=== PATIENT | male | born 1990 | race Caucasian/White ===

== ENCOUNTER 2019-10-19 11:57 | Inpatient (IN) | payer OTHER ==
[2019-10-19] VITALS (9 sets, daily range): BP systolic 115–140; BP diastolic 74–93
[~2019-10-19] VITALS: Ht 177.8 cm; Wt 73.0 kg
[2019-10-19] MEDS ORDERED: ALBUTEROL2.5 MG/0.1 INH (12:17)
[2019-10-19] MEDS ORDERED: PROAIR HFA8.5 GM INH (12:18)
[2019-10-19 12:22] LABS: ABSOLUTE NEUTROPHILS 3.8 thou/uL (1.4-8.2); BASOPHILS 1.3 % (0.0-2.0); EOSINOPHILS 4.5 % (0.0-3.0); HEMATOCRIT 49.8 % (42.0-52.0); HEMOGLOBIN 16.7 gm/dL (14.0-18.0); LYMPHOCYTES 23.3 % (24.0-44.0); MCHC 33.6 g/dL (28.0-37.0); MONOCYTES 8.9 % (1.0-8.0); PLATELET COUNT 163 thou/uL (150-400); RBC 4.65 mil/uL (4.50-6.00); RDW 17.4 % (10.5-14.5); WBC 6.2 thou/uL (4.0-11.0)
[2019-10-19 12:43] LABS: ANION GAP 14 mmol/L (7-16); BUN 2 mg/dL (7-18); CALCIUM 9.7 mg/dL (8.5-10.1); CHLORIDE 96 mmol/L (98-107); CO2 29 mmol/L (21-32); CREATININE 1.3 mg/dL (0.7-1.3); GLUCOSE 116 mg/dL (74-106); POTASSIUM 3.3 mmol/L (3.5-5.1); SODIUM 139 mmol/L (136-145)
[2019-10-19 12:52] LABS: ALBUMIN 3.9 g/dL (3.4-5.0); LIPASE 305 U/L (73-393); PHOSPHORUS 3.4 mg/dL (2.5-4.9); SGOT 420 U/L (15-37); SGPT 101 U/L (30-65); TOTAL BILIRUBIN 2.3 mg/dL (<0.1-1.0); TOTAL PROTEIN 8.8 g/dL (6.4-8.2); TROPONIN-I <0.06 ng/mL (<0.06)
[2019-10-19 13:10] LABS: URINE BILIRUBIN NEGATIVE (Negative); URINE BLOOD NEGATIVE (Negative); URINE CLARITY CLEAR; URINE COLOR YELLOW; URINE GLUCOSE-RANDOM* NEGATIVE (Negative); URINE KETONES NEGATIVE (Negative); URINE LEUKOCYTES-REFLEX NEGATIVE (Negative); URINE NITRITE-REFLEX NEGATIVE (Negative); URINE PROTEIN (DIPSTICK) TRACE (Negative)
[2019-10-19 13:24] LABS: AMP/METHAMP Negative (Negative); BARBITURATES Negative (Negative); BENZODIAZEPINES POSITIVE (Negative); COCAINE Negative (Negative); METHADONE Negative (Negative); OPIATES Negative (Negative); PCP Negative (Negative)
--- NOTE | 2019-10-19 16:41 | EKG ---
[facility] [address] ELECTROCARDIOGRAM REPORT Name: MARCK DE PAZ Room #: 170-4 ADM IN M.R.#: [id number] Admission: 10/19/19 Attend Phys: Rochelle Ruggiero MD Discharge: Date of : 89 Report #: [id number] THIS REPORT FOR: cc: JOSE - No family physician/PCP FAM - No family physician/PCP Reynaldo Lake MD 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 /EPI
--- NOTE | 2019-10-19 18:09 | NUR ---
PT ORIENTED TO ROOM 240. BED LOW AND LOCKED SIDE RAILS UP X4 AND PADDED. CALL LIGHT IN REACH. TELE APPLIED AND CIWA PROTOCOL IN PLACE. WILL CONMTINUE TO ASSESS.
[2019-10-19 19:34] LABS: ABSOLUTE NEUTROPHILS 2.9 thou/uL (1.4-8.2); BASOPHILS 0.7 % (0.0-2.0); EOSINOPHILS 2.5 % (0.0-3.0); HEMATOCRIT 44.5 % (42.0-52.0); HEMOGLOBIN 14.8 gm/dL (14.0-18.0); LYMPHOCYTES 20.6 % (24.0-44.0); MCH 35.8 pg (26.0-34.0); MCHC 33.4 g/dL (28.0-37.0); MCV 107.3 fL (80.0-100.0); PLATELET COUNT 106 thou/uL (150-400); POLYS 67.2 % (36.0-66.0); RBC 4.14 mil/uL (4.50-6.00); RDW 17.3 % (10.5-14.5); WBC 4.3 thou/uL (4.0-11.0)
[2019-10-19 20:02] LABS: MAGNESIUM 1.5 mg/dL (1.8-2.4)
[2019-10-19 20:24] LABS: ANISOCYTOSIS 1+
[2019-10-19 20:25] LABS: MACROCYTES 1+
[2019-10-19 21:09] LABS: FOLIC ACID > 100.0 ng/mL (8.6-58.9)
[2019-10-20] VITALS (21 sets, daily range): BP systolic 101–154; BP diastolic 54–114
--- NOTE | 2019-10-20 08:15 | EKG ---
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: YAMILETH : 1990 Requested By: Jose Chambers Order Number: [id number] MD: Reynaldo Lake Measurements Intervals [place] Rate: 118 P: [place]: QRS: 111 QRSD: 94 T: -24 QT: 302 QTc: 424 Interpretive Statements Sinus tachycardia Right axis deviation Borderline T abnormalities, inferior leads Baseline wander in lead(s) V2 Compared to ECG 10/19/2019 12:16:06 No significant change was found Electronically Signed On 10-20-2019 8:14:17 SOCIAL WORKER DELINQUENCY PREVENTION by Reynaldo Lake [email or web address] <ELECTRONICALLY SIGNED> By: Reynaldo Laek MD, FAC 10/20/19 0814 1656 1656 Reynaldo Lake MD, FAC /EPI
--- NOTE | 2019-10-20 15:15 | NUR ---
met with patient regarding ETOH withdrawl. He is sound asleep and not arousable. Left safety [facility] clinic information. patient with recent admit [place] 10/11/19. Per chart patient consumes 1/2 gallon of ETOH a day. He has no health insurance. He is sound asleep with smart phone at bedside, has access to resources. [facility] following to assist with dc planning.
--- NOTE | 2019-10-20 18:30 | NUR ---
ASSUMED CARE @ 0700 10/20/19, PT ASSESSMENTS AND VSS COMPLETE PER ICU PROTOCOL. PT ON PRECEDEX GTT AND ATIVAN GIVEN APPROX Q2H FOR A CIWA OF 15-20. PT PROGRESSING TOWARDS POC.
--- NOTE | 2019-10-20 21:39 | NUR ---
1899--ASSUMMED CARE OF PT.--VW PT OOB MULTIPLE TIMES,BED ALARM SOUNDING. PT BECONGING BELLIGERANT-SECURITY CALLED,PT OOB & SLID TO FLOOR.PT RESISTENT TO CARE-WRIST RESTRAINS APPLIED,PT CUSSING & VERBALLY ABUSIVE.SPOKE Carmela BLEVINS,EAP COUNSELOR-ORDERS =NOTED.--VW
--- NOTE | 2019-10-20 23:46 | NUR ---
REPORT RECIEVED FROM OUTGOING RN, PATIENT ASSESSED AND VERY AGITATED ATTEMPTING TO BITE IV LINE. FACED FOWARD IN BED LEANING TOWARDS FOOT OF THE BED. PATIENT VIOLENT TOWARDS STAFF, KICKING. SECURITY NOTIFIED, PATIENT PLACED IN 3 POINT RESTRAINTS. NOTIFIED NURSE PRACTITIONER FOR NEW RESTRAINT ORDER. PRN MEDICATION ALSO ORDERED. WILL CONTINUE TO MONITOR.
[2019-10-21] VITALS (43 sets, daily range): BP systolic 97–166; BP diastolic 64–123
--- NOTE | 2019-10-21 00:16 | NUR ---
PATIENT MORE AGITATED, SECURITY CALLED. PATIENT KICKING SECURITY WITH LEFT LEG. NURSE PRACTITIONER CALLED FOR NEW ORDERS. PATIENT PLACED IN X4 POINT RESTRAINTS BY SECURITY. ONE ON ONE MONITORING IN PLACE.
--- NOTE | 2019-10-21 02:48 | NUR ---
PATIENT RESTING COMFORTABLY, 4 POINT RESTRAINTS REMOVED, X3 SOFT RESTRAINTS APPLIED.
--- NOTE | 2019-10-21 05:43 | NUR ---
PATIENT AGITATED AND RESTLESS DURING BEGINNING OF SHIFT, CIWA SCORE WAS 31 AND SIGNIFICANTLY DECREASED TO 6. SINUS RHYTHM ON GAMBLING BROKER. RESTING COMFORTABLY. DONOVAN CATHETER INSERTED FOR ACCURATE I&O. NO SIGN OF ACUTE DISTRESS NOTED AT THIS TIME. WILL CONTINUE TO MONITOR.
[2019-10-21 07:08] LABS: HEP B SURFACE Ab(ANTI-HBS Reactive (()); HEPATITIS B SURFACE AG Negative (Negative); HIV ANTIBODY Non Reactive (Non Reactive)
[2019-10-21 07:33] LABS: CALCIUM 8.9 mg/dL (8.5-10.1); CREATININE 0.9 mg/dL (0.7-1.3); MAGNESIUM 1.9 mg/dL (1.8-2.4); PHOSPHORUS 3.8 mg/dL (2.5-4.9)
--- NOTE | 2019-10-21 10:05 | NUR ---
Pt sitting up in bed yelling and pulling against restraints. Pt wanting the catheter removed. Pt wanting to call the police. Disoriented. Attempts to reason with pt and calm him unsuccessful. Ativan [address] Banuelos had just made rounds on patient few minutes before and he was very drowsy and subdued during her visit. CHANGER FIXER at bedside and another RN present to assist with getting medications and keeping pt from pulling his catheter out.
--- NOTE | 2019-10-21 10:25 | NUR ---
Pt calming down now. Pt having visual hallucinations. Pt talking about about a couple of men in lawnchairs who are watching him. O2 sat 95% on room air. Respirtationz regualar at 19/min.
--- NOTE | 2019-10-21 10:50 | NUR ---
pt in bed, eyes closed. sitter at bedside. pt still in wrist restraints. will cont following as needed for dc needs.
--- NOTE | 2019-10-21 14:20 | NUR ---
Pt agitated, confused and trying to get out of bed despite attempts to orient and redirect. Security was called to assist with keeping pt safe and in bed. Dr Lima arrived at pt room just prior to arrival of two guards from security dept. Dr Lima talked with pt who continued to be agitated. Two mg of Ativan given IV per Dr Lima's order.(Initial order was for 3 mg but she changed the order to 2 mg). Pt was pulled up and repositioned in the bed after Ativan administered. Pt did relax after receiving the Ativan.
--- NOTE | 2019-10-21 19:00 | NUR ---
Report given to the oncoming nurse. Sitter is at bedside. Pt continues to have periods of confusing and intermittent periods of agitation requiring PRN doses of Ativan. Total of Ativan 15 mg administered this shift for agitation. Precedex infusion also at 1.4 mcg/kg/hr this shift.
[2019-10-21 21:10] LABS: SYPHILIS AB Non Reactive (Non Reactive)
[2019-10-22] VITALS (40 sets, daily range): BP systolic 111–158; BP diastolic 70–108
[2019-10-22 05:52] LABS: HEMATOCRIT 41.7 % (42.0-52.0); HEMOGLOBIN 13.7 gm/dL (14.0-18.0); MCH 35.7 pg (26.0-34.0); MCHC 32.8 g/dL (28.0-37.0); MCV 108.9 fL (80.0-100.0); RBC 3.83 mil/uL (4.50-6.00); RDW 17.2 % (10.5-14.5)
[2019-10-22 06:15] LABS: ALBUMIN 3.2 g/dL (3.4-5.0); CALCIUM 8.8 mg/dL (8.5-10.1); MAGNESIUM 1.5 mg/dL (1.8-2.4); POTASSIUM 3.4 mmol/L (3.5-5.1); TOTAL BILIRUBIN 2.6 mg/dL (<0.1-1.0); TOTAL PROTEIN 7.2 g/dL (6.4-8.2)
--- NOTE | 2019-10-22 08:01 | NUR ---
PATIENT ALERT TO SELF ONLY, RE-ORIENTED TO PLACE/TIME/SITUATION. PATIENT ABLE TO FOLLOW COMMANDS BUT NOT EASILY REDIRECTABLE. PATIENT VERY ANXIOUS THROUGHOUT THE SHIFT, PRN MEDICATION GIVEN PER CIWA PROTOCOL. CIWA CURRENTLY GREATER THAN 20 THROUGOUT THE NIGHT. DONOVAN PATENT AND DRAINING. IV PRECEDX FOR AGITATION. PATIENT HAD EPISODES OF CRYING SPELLS FOLLOWED BY AGRESSION TOWARDS NURSING STAFF AND ASSISTANT MEDIA BUYER. SECURITY AT THE BEDSIDE MULTIPLE OCCASIONS THROUGHOUT THE NIGHT. PATIENT HALLUCINATING AND HEARING VOICES. PATIENT CALLED --1 STATING STAFF WAS TRYING TO HOLD HIM HOSTAGE AND KILL HIM. PATIENT REASSURED THAT HE WAS IN THE HOSPITAL AND WITHDRAWING FROM ALCOHOL, PATIENT INTERMITTENTLY UNDERSTANDS SITUATION. REPORT GIVEN TO ONCOMING RN, ELIZABETH DOBBS GIVEN. PATIENT RESTING COMFORTABLY, NO SIGN OF ACUTE DISTRESS NOTED AT THIS TIME. WILL CONTINUE TO MONITOR.
[2019-10-22 11:12] LABS: ABSOLUTE NEUTROPHILS 2.4 thou/uL (1.4-8.2); ANISOCYTOSIS 1+; LARGE PLATELETS FEW; MICROCYTES 2+; PLATELET COUNT 90 thou/uL (150-400); PLATELET ESTIMATE DECREASED
[2019-10-22 11:28] LABS: HSV PCR SOURCE URETHRA
[2019-10-22 17:17] LABS: PHOSPHORUS 3.4 mg/dL (2.5-4.9)
[2019-10-22 17:18] LABS: POTASSIUM 4.1 mmol/L (3.5-5.1)
--- NOTE | 2019-10-22 19:30 | NUR ---
SEE DOCUMENTATION PER CIWA SCALE. ATIVAN PO ADMINISTERED ACCORDINGLY. DR. ANDREW PRESENT TO EVALUATE PT. BEHAVIORAL RESTRAINTS CONTINUED FOR PT SAFETY. PT RESTING QUIETLY, THEN ABRUPTLY HE WILL SIT UP IN BED IN ACKWARD POSITIONS AND PULL AGAINST THE RESTRAINTS. HE IS CONFUSED, TALKING ABOUT THE GREEN ROOM FROM COMPUTER AURELIANO, STATING HE NEEDS TO GET OUT OF BED SO HE CAN GO TAKE CARE OF HIS KIDS, THEN RAMBLES IN A NONSENSICAL CONVERSATION. ATTEMPTS TO GET OUT OF BED. SEE ATIVAN ADMINISTRATION. SLOW PROGRESS.
[2019-10-23] VITALS (32 sets, daily range): BP systolic 107–165; BP diastolic 57–110
[2019-10-23 05:45] LABS: HEMATOCRIT 41.7 % (42.0-52.0); HEMOGLOBIN 13.9 gm/dL (14.0-18.0); MCH 36.3 pg (26.0-34.0); MCHC 33.5 g/dL (28.0-37.0); MCV 108.6 fL (80.0-100.0); PLATELET COUNT 107 thou/uL (150-400); RBC 3.84 mil/uL (4.50-6.00); RDW 17.3 % (10.5-14.5)
[2019-10-23 06:13] LABS: CALCIUM 8.4 mg/dL (8.5-10.1); CREATININE 0.9 mg/dL (0.7-1.3); MAGNESIUM 1.8 mg/dL (1.8-2.4); PHOSPHORUS 3.1 mg/dL (2.5-4.9); POTASSIUM 3.3 mmol/L (3.5-5.1); TOTAL BILIRUBIN 2.1 mg/dL (<0.1-1.0); TOTAL PROTEIN 7.2 g/dL (6.4-8.2)
[2019-10-23 07:05] LABS: ABSOLUTE NEUTROPHILS 1.8 thou/uL (1.4-8.2)
[2019-10-23 07:06] LABS: ANISOCYTOSIS 1+; MACROCYTES 1+; PLATELET ESTIMATE NORMAL
--- NOTE | 2019-10-23 07:32 | NUR ---
PATIENT ALERT TO SELF/SITUATION/AND MONTH, DISORIENTED TO PLACE AND TIME. ON ROOM AIR. DONOVAN PATENT AND DRAINING. PRECEDX FOR LIGHT SEDATION. CIWA PROTOCOL IMPLEMENTED. CURRENT CIWA SCORE IS 3 WHICH IS A SIGNIFICANT DECREASE FROM BEGINNING OF THE SHIFT. SITTER PRESENT AT THE BEDSIDE THROUGOUT THE NIGHT. PATIENT IS EASILY RE-DIRECTABLE. SITTER DISCONTINUED THIS MORNING. PATIENT MORE PLEASANT TOWARD STAFF AND OTHERS. NO SIGN OF ACUTE DISTRESS NOTED AT THIS TIME. WILL CONTINUE TO MONITOR.
--- NOTE | 2019-10-23 09:00 | NUR ---
NATHANAEL BARDALES, MOTHER [phone], CALLED TO INQUIRE REGARDING PT STATUS. PT GAVE CONSENT FOR MOTHER TO HAVE PRIVACY CODE AND PT INFORMATION. MS. BARDALES STATED, "PART OF THE PROBLEM IS HE WANTS TO GO TO INPATIENT REHAB. HE CALLED EVERYONE ON THE LIST. SINCE HE DOESN'T HAVE INSURANCE THEY WILL ONLY TAKE HIM FOR THREE DAYS". SHE STATES, "HE NEEDS INPATIENT REHAB MORE THAN THREE DAYS". EXPLAINED CASE MANAGEMENT WILL BE NOTIFIED AND THAT SHE WOULD PROBABLY RECEIVE A CALL ON 10/24/2019.
[2019-10-23 16:10] LABS: MAGNESIUM 2.3 mg/dL (1.8-2.4); POTASSIUM 3.3 mmol/L (3.5-5.1)
[2019-10-23 19:10] LABS: HSV 1 DNA Negative (Negative); HSV 2 DNA Positive (Negative)
--- NOTE | 2019-10-23 19:15 | NUR ---
SLOWLY PROGESSING WITH PRECEDEX INFUSING AND ATIVAN PO PER CIWA PROTOCOL. PT PROGRESSIVELY MORE COOPERATIVE. WATCHING TV, USING CELL PHONE APPROPIATELY TO COMMUNICATE WITH FAMILY/GIRLFRIEND. SR, HYDRALAZINE IV GIVEN FOR ELEVATED BP- EFFECTIVE. REPLACED POTASSIUM IV WITH RECHECK 3.3. DR. MOSCOOS NOTIFIED. ORDERS RECEIVED FOR POTASSIUM PO AND FOR DONOVAN REMOVAL PER PT REQUEST. DONOVAN REMOVED AT 1820, WELL TOLERATED. GIRLFRIEND INQUIRED REGARDING PT STATUS, UPDATED.
[2019-10-24] VITALS (37 sets, daily range): BP systolic 87–162; BP diastolic 37–120
[2019-10-24 06:05] LABS: HEMATOCRIT 40.8 % (42.0-52.0); HEMOGLOBIN 13.6 gm/dL (14.0-18.0); MCHC 33.4 g/dL (28.0-37.0); MCV 107.7 fL (80.0-100.0); PLATELET COUNT 127 thou/uL (150-400); RBC 3.79 mil/uL (4.50-6.00); RDW 17.2 % (10.5-14.5); WBC 3.9 thou/uL (4.0-11.0)
[2019-10-24 06:35] LABS: ALBUMIN 2.9 g/dL (3.4-5.0); CALCIUM 8.7 mg/dL (8.5-10.1); CREATININE 0.9 mg/dL (0.7-1.3); MAGNESIUM 1.7 mg/dL (1.8-2.4); POTASSIUM 3.9 mmol/L (3.5-5.1); TOTAL BILIRUBIN 1.9 mg/dL (<0.1-1.0)
--- NOTE | 2019-10-24 07:31 | NUR ---
PATIENT ALERT AND ORIENTED TO SELF AND SITUATION. ON ROOM AIR THROGHOUT THE NIGHT. TOLERATING CLEAR LIQUIDS, DECREASED APPETITE. SINUS TACHYCARDIA ON ORACLE FUSION CONSULTANT. DONOVAN REMOVED AT 1800, PATIENT VOIDING. ATTEMPTED TO DECREASE PRECEDEX THROUGHOUT THE NIGHT, LOWEST RATE 0.4/HR, CURRENTLY INCREASED TO 0.8 AT 0600 DUE TO PATIENT DRY HEAVING AND SHAKING UNCONTROLLABLEY. IV ZOFRAN GIVEN. NO SIGN OF AGRESSION TOWARDS STAFF, PATIENT RE-DIRECTABLE. PATIENT WAS RESTLESS THROUGHOUT THE NIGHT. UP WITH STANDBY ASSISTANCE TO COMMODE, PATIENT SAT IN CHAIR FROM [id number]. NO SIGN OF ACUTE DISTRESS NOTED AT THIS TIME. SLOWLY PROGRESSING TOWARDS GOALS. WILL CONTINUE TO MONITOR.
--- NOTE | 2019-10-24 07:50 | NUR ---
pt up in bed, bedside nurse working with him. pt out of restraints and no sitter. pt not able to answer question appropriately. per report from bedside nurse, pt seeing people with gun trying to get his girlfriend and he reports bugs crawling on him. still going through withdrawal. will cont following as needed for dc needs. no family at bedside.
--- NOTE | 2019-10-24 08:31 | NUR ---
PT ANXIOUS WANTING TO GO HOME, TO HAVE A CIGARETTE, SCOOTING DOWN TO FOOT OF BED TO GET SHOES AND TO GET OUT OF BED. INITALLY PT DENIED HALLUCINATIONS. NOW HE IS STATING "THERE IS A GUNMAN OVER THERE AND HE IS GOING TO SHOOT ME. MY GIRLFRIEND IS OVER THERE, HE ALMOST SHOT HERE". I FEEL BUGS CRAWLING ON ME. NAUSEATED, HAVING DRY HEAVES. SEE [facility] FOR FURTHER DETAILS, GIVEN 4 MG LORAZEPAM.
[2019-10-24 09:11] LABS: ABSOLUTE NEUTROPHILS 2.4 thou/uL (1.4-8.2); ANISOCYTOSIS 1+; MACROCYTES 1+; PLATELET ESTIMATE NORMAL
--- NOTE | 2019-10-24 10:00 | NUR ---
SECURITY WAS PRESENT TO CHECK ON PT STATUS. PT CALLED 911. PHONE PLACED IN CABINET AWAY FROM PT REACH. PT WANTS A CIGARETTE AND HIS PHONE.
--- NOTE | 2019-10-24 10:40 | NUR ---
pt was sitting in bed in tripod position, rocking back and forth. then he dozed off briefly. currently sitting in bed in tripod position and rocking back and forth. sbp down to 87/48. dr. brenner present, updated on pt condition. NS bolus ordered for bp. will administer ativan when bp allows.
--- NOTE | 2019-10-24 10:40 | NUR ---
DR. ANDREW PRESENT, UPDATED ON PT STATUS. PT SITTING IN BED, POPPY.
--- NOTE | 2019-10-24 15:00 | NUR ---
pt dozed off, resting quietly, resp even and unlabored, vital signs stable. pt undisturbed.
--- NOTE | 2019-10-24 17:19 | NUR ---
continues to rest quietly, resp even and unlabored, vital signs stable.
[2019-10-24 18:53] LABS: MAGNESIUM 2.1 mg/dL (1.8-2.4); PHOSPHORUS 1.2 mg/dL (2.5-4.9)
--- NOTE | 2019-10-24 20:21 | NUR ---
INITIAL ASSESSMENT COMPLETED DURING BEGINNING OF SHIFT, TEMPERATURE 103 AT 1900 AND INCREASED RESPIRATIONS. CIWA PROTOCOL COMPLETED AND PRN LORAZEPAM GIVEN. PATIENT REASSESSED AT 1999, TEMPERATURE INCREASED TO 104 DEGREES FARENHEIT. NURSE PRACTITIONER NOTIFIED, STAT BLOOD CULTURES ORDERED. WILL CONTINUE TO MONITOR.
[2019-10-25] VITALS (21 sets, daily range): BP systolic 91–131; BP diastolic 30–83
[2019-10-25 05:39] LABS: HEMATOCRIT 36.1 % (42.0-52.0); HEMOGLOBIN 12.3 gm/dL (14.0-18.0); MCH 37.1 pg (26.0-34.0); MCHC 34.1 g/dL (28.0-37.0); MCV 108.8 fL (80.0-100.0); RBC 3.32 mil/uL (4.50-6.00); RDW 16.8 % (10.5-14.5); WBC 2.3 thou/uL (4.0-11.0)
[2019-10-25 06:00] LABS: CALCIUM 8.3 mg/dL (8.5-10.1); CREATININE 1.3 mg/dL (0.7-1.3); POTASSIUM 3.9 mmol/L (3.5-5.1)
--- NOTE | 2019-10-25 07:29 | NUR ---
NEW ORDERS FOR TYLENOL GIVEN FOR INCREASED TEMPERATURE. TEMPERATURE CLOSELY MONITORED THROUGHOUT THE NIGHT, CURRENTLY GREATER THAN 100 DEGREES FARENHEIT. LABWORK COMPLETED, WHITE BLOOD CELL COUNT DECREASING. NURSE PRACTITIONER NOTIFIED AT 0600, REPORT GIVEN TO ONCOMING RN REGARDING OVERNIGHT CHANGE. CIWA CURRENTLY 3, PATIENT RESTING COMFORTABLY. NO SIGN OF ACUTE DISTRESS NOTED AT THIS TIME. WILL CONTINUE TO MONITOR.
--- NOTE | 2019-10-25 09:53 | NUR ---
RESTING QUIETLY THIS AM WHEN UNDISTURBED, SR, ROOM AIR, REFUSED BREAKFAST. TEMP 101.3- TYLENOL PO GIVEN, WARM BLANKETS APPLIED TO DECREASE SHIVERING. PT SPONTANEOUSLY STARTED COUGHING, THEN COUGHING SO MUCH HE HAD SMALL AMOUNT OF CLEAR BLUE EMESIS. HE RECENTLY TOOK HIS PO MEDS. CONSTANTLY COUGHING WITH HR UP TO 161. DR. MCQUEEN NOTIFIED, HE IS ON HIS WAY TO SEE PT.
--- NOTE | 2019-10-25 20:15 | NUR ---
WARM BLANKETS APPLIED TO DECREASE SHIVERING. DURING INITIAL ASSESSMENT NOTED LOWER THIRD OF R ARM RED, WARM, PAINFUL, SWOLLEN. PREVIOUS IV SITE SLIGHTLY LARGER THAN TYPICAL IV INSERTION SITE. NOTE SLIGHT LAYER OF SKIN SLOUGHED OFF SURROUNDING IMMEDIATE INSERTION SITE. ST, CONSTANTLY COUGHING, SPITTING UP SMALL AMOUNT PHELGM/EMESIS, RR 20-30'S. DR. MCQUEEN PRESENT AT 1040. TITRATED PRECEDEX OFF, NS BOLUS INFUSING. PCXR, FLU SWAB, R HAND CULTURE, LACTIC COMPLETED. ANTIBIOTICS ADMINISTERED. PICC TEAM PRESENT TO PLACE PERIPHERAL IV FOR ADDITIONAL IV ACCESS. DR. ANTONIO RECONSULTED, PRESENT TO SEE PT @ 1300. PT HAD LOOSE STOOLS TODAY, 2 ON THE BEDPAN AND IMPULSIVELY UP OUT OF THE BED TO GO HAVE A STOOL. INCONTINENT OF STOOL IN THE BED, ON THE BED AND RAILS, ON THE FLOOR AND ALL OVER HIM AND HIS GOWN. COMPLETE BED CHANGES X 3. BED ALARM CONTINUES TO REMAIN ENABLED. WHEN PT REMINDED TO USE THE CALL LIGHT AND NOT TO GET OUT OF BED, HE STATES, "I USED THE CALL LIGHT". CONFIRMED CALL LIGHT FUNCTIONING AND IN HIS REACH. TYLENOL GIVEN FOR FEVERS WITH MINIMAL RELIEF. PERIPHERAL IV PLACED TODAY MALFUNCTIONING, UNABLE TO FLUSH OR DRAW BLOOD. CHERYL GERARD IV ACCESS TEAM REPLACED ANOTHER PERIPHERAL IV. WELL TOLERATED BY PT. DR. ANDREW PRESENT LATE THIS EVENING. PT REMOVED HIS BLANKETS, SHIVERING, RESTLESS, IMPULSIVE. WITHIN 10 SECONDS, PT BOLTED OUT OF BED OVER THE BED RAILS AND WAS WOBBLY STANDING ABOUT 2 FEET FROM THE BED. RN PROMPTLY IN ROOM, PT ASSISTED BACK TO BED WITH 2 ASSIST. PLACED ON BEDPAN PER REQUEST. PT COUGHING, HAVING SCANT AMOUNT EMESIS. DR. ANDREW GAVE ORDER FOR LORAZEPAM 4 MG IV TO BE GIVEN NOW. DURING REPORT PT IMPULSIVELY GETTING OUT OF BED TWO TIMES. CURRENT RN AND ONCOMING RN RESPONDING. PT ROCKING AGGRESSIVELY BACK AND FORTH, TO THROW HIS UPPER BODY OUT OF THE BED. SECURITY CALLED FOR THEIR ASSISTANCE.
[2019-10-26] VITALS (12 sets, daily range): BP systolic 110–153; BP diastolic 60–93
--- NOTE | 2019-10-26 07:59 | NUR ---
PATIENT FEBRILE WITH NAUSEA AND DIAREAH ALL NIGHT. AGGITATTED AND RESTLESS WANTING TO GO TO ANOTHER FACILITY. CONSTANT REDIRECTION NEEDED NON COMPLAIANT. PATIENT IS NOT MOVIMG TOWARDS GOAL.
--- NOTE | 2019-10-26 09:57 | NUR ---
Nutrition: Pt with very little po intake x 7 days. Inadequate diet order (clear liquid/full liquids) x 7 days. Now with N/V/D per nsg. REC change IVFs to Clinimix PPN at same rate with 250 mL 20% lipids daily til tolerating PO. TPN would best meet needs however no central line present. REC re check phospohorus level. Phos 1.2 low on 09/23. Replace as appropriate.
[2019-10-26 14:42] LABS: HEMATOCRIT 35.4 % (42.0-52.0); HEMOGLOBIN 11.9 gm/dL (14.0-18.0); MCH 36.5 pg (26.0-34.0); MCHC 33.6 g/dL (28.0-37.0); MCV 108.7 fL (80.0-100.0); PLATELET COUNT 100 thou/uL (150-400); RBC 3.26 mil/uL (4.50-6.00); RDW 17.2 % (10.5-14.5); WBC 4.5 thou/uL (4.0-11.0)
[2019-10-26 15:01] LABS: ALBUMIN 2.5 g/dL (3.4-5.0); CALCIUM 7.9 mg/dL (8.5-10.1); POTASSIUM 3.5 mmol/L (3.5-5.1); TOTAL BILIRUBIN 1.5 mg/dL (<0.1-1.0); TOTAL PROTEIN 5.6 g/dL (6.4-8.2)
[2019-10-26 15:27] LABS: ABSOLUTE NEUTROPHILS 2.8 thou/uL (1.4-8.2); ANISOCYTOSIS 2+; METAMYELOCYTES 1 %; PLATELET ESTIMATE NORMAL; POLYCHROMASIA 1+
--- NOTE | 2019-10-26 19:13 | NUR ---
ASSESSMENTS AND INTERVENTIONS DOCCUMENTED. PATIENT RESTLESS THROUGH OUT SHIFT. TECH IN ROOM WITH PATIENT FOR SAFETY. PATIENT IMPULSIVE AND TRYING TO GET OUT OF BED. THROUGH OUT THE SHIFT, NAUSEA, VOMMITING AND LOOSE STOOLS. ORDER FOR FMS GIVEN. PATIENT TOLERATED IT WELL. FMS IN PLACE AND DRAINING. BLADDER SCANNED AND 280ML IN BLADDER. ORDER FOR DONOVAN CATHETER GIVEN. PATIENT NOT PROGRESSING TOWARDS GOALS EVIDENCE BY INCREASED AGITATION, CONFUSION AND NEW SYMPTOMS.
[2019-10-27] VITALS (20 sets, daily range): BP systolic 109–170; BP diastolic 47–116
--- NOTE | 2019-10-27 04:42 | NUR ---
PT REMAINS AWAKE, RESTLESS AND CONFUSED DESPITE HALDOL AND ATIVAN GIVEN. SEEMS TO BE MORE HALLUCINATIONS AFTER ATIVAN GIVEN. RESTRAINTS ON PT PULLING AT MEDICAL THERAPY, AND CONTANT TRYING TO BET OUT OF BED. LOOSE RT DUE TO PHLEBITIS OF RT WRIST/HAND, AND LOOSE ENOUGH FOR PT TO CONTROL TV ETC. TMAX 100.2 AX- VANCO AND IV FLUIDS INFUSING. PT STILL C/O NAUSEA/VOMITING WITH WATER. CONT TO HAVE LARGE AMT OF LIQUID GREEN STOOL. PT NOT PROGRESSING TOWARD GOALS. SEE [facility] FOR COMPLETE ASSESSMENT
--- NOTE | 2019-10-27 09:17 | NUR ---
NOTIFIED DR. ANDREW PT KICKING RN IN THE HEAD ORDER OBATIANED FOR DILIA Fleming AND SHE WILL BE BY TO SEE PT. HE STATES "CUNT I WANT TO KILL YOU". REMAINS IN RESTRAINTS BILATERAL WRIST AT THIS TIME. BED ALARM ON FOR PT SAFETY. HE IS TRYING TO GET OUT OF BED. PRIOR TO THIS ATIVAN GIVEN AND BENDRYL. DID NOT SEEM TO EFFECT HIM AT ALL. WILL CONTINUE NURSING CARE
--- NOTE | 2019-10-27 14:51 | NUR ---
DR. ANDREW HERE TO SEE PT AND MEDS CHANGED. DIAGNOSITIC TESTING ORDERED BUT COMBATIVE. DILIA ORDERED. REMAINS IN RESTRATINTS BILAERAL. WITH DILIA HE IS SLEEPING AND RESTING AT THIS TIME. PT'S MOTHER CALLED WITH HIS PASS CODE AND UPDATED ON PT'S PROGRESS . SHE STATES HE GETS LIKE THIS WITH HIS ALCHOL WITHDRAW IS WHAT SHE REPORTS. WILL CONTINUE TO ASSESS AND MONITOR PER NURSING.
--- NOTE | 2019-10-27 18:36 | NUR ---
Pt is very restless and agitated. Gave haldol IV stat w/o any improvement.Will give Cathi.
--- NOTE | 2019-10-27 20:30 | NUR ---
Pt remains very agitated after Cathi ALFARO. Call placed to ; see new orders.
--- NOTE | 2019-10-27 21:30 | NUR ---
Pt's gf called for an updates.
[2019-10-28] VITALS (26 sets, daily range): BP systolic 110–160; BP diastolic 66–112
--- NOTE | 2019-10-28 02:30 | NUR ---
PT RECEIVED MULTIPLE DOSES OF ANTIPSYCHOTIC DRUGS IN THIS SHIFT. SO FAR NOTHING SEEMS TO WORK ON HIM. HE IS INCREASED MORE HALLUCINATION NOTED WITH MORE EPISODE OF AGITATION. WILL PAGE AGAIN .
[2019-10-28 04:53] LABS: HEMATOCRIT 33.4 % (42.0-52.0); HEMOGLOBIN 11.1 gm/dL (14.0-18.0); MCH 35.6 pg (26.0-34.0); MCHC 33.1 g/dL (28.0-37.0); MCV 107.4 fL (80.0-100.0); RBC 3.11 mil/uL (4.50-6.00); RDW 16.9 % (10.5-14.5); WBC 3.3 thou/uL (4.0-11.0)
[2019-10-28 04:54] LABS: CALCIUM 7.4 mg/dL (8.5-10.1); CREATININE 0.7 mg/dL (0.7-1.3)
[2019-10-28 05:44] LABS: POTASSIUM 2.7 mmol/L (3.5-5.1)
--- NOTE | 2019-10-28 05:44 | NUR ---
POTASSIUM 2.7 THIS AM PER TAD DRAW. NOTIFIED JUAN DANIEL ALBARRAN; SEE ORDER.
--- NOTE | 2019-10-28 05:58 | NUR ---
Pt appears sleeping at this time. He looks much more calmer. Precedex gtt stop at 0400. No s/sx of any distress indicates. Will continue to monitor.
--- NOTE | 2019-10-28 08:20 | NUR ---
pt in bed rest with eyes closed, per report pt received precedex. not eating or drinking much, possible will need ppn and lipids, and in restraints. tried calling pt mom rebecca [phone], cont to get busy signal. will cont following as needed for dc needs.
[2019-10-28 12:29] LABS: CREATININE 0.6 mg/dL (0.7-1.3)
[2019-10-28 12:34] LABS: ALBUMIN 2.3 g/dL (3.4-5.0); DIRECT BILIRUBIN 0.5 mg/dL (<0.1-0.2); TOTAL BILIRUBIN 1.1 mg/dL (<0.1-1.0); TOTAL PROTEIN 5.9 g/dL (6.4-8.2)
--- NOTE | 2019-10-28 15:26 | NUR ---
PT HAS BEEN CALM TODAY IS ON A PRECEDEX DRIP. REMAINS IN WRIST RESTRATINTS BILATERAL. NEURO SEEN PT TODAY AND ORDERED DIAGNOISTIC TESTING. DR. ANDREW HERE TO SEE PT IN ADDITIION. SCDS ON BILATERAL LUNGS ARE CLEAR TO DIMINISHED. ON ROOM AIR. CONFUSED WITH ORIENTATION X4. SINUS RHTHYM ON THE MONITOR. FECAL AND DONOVAN PRESENT. TURN Q 2 HOURS. WILL CONTINUE TO ASSESS AND MONITOR PER NURSING
[2019-10-29] VITALS (23 sets, daily range): BP systolic 114–145; BP diastolic 73–99
[2019-10-29 04:17] LABS: HEMATOCRIT 34.6 % (42.0-52.0); HEMOGLOBIN 11.4 gm/dL (14.0-18.0); MCHC 33.1 g/dL (28.0-37.0); MCV 108.6 fL (80.0-100.0); RBC 3.18 mil/uL (4.50-6.00)
[2019-10-29 04:22] LABS: CALCIUM 8.6 mg/dL (8.5-10.1); CREATININE 0.7 mg/dL (0.7-1.3); POTASSIUM 3.6 mmol/L (3.5-5.1)
--- NOTE | 2019-10-29 15:16 | NUR ---
VASCULAR ACCESS CONSULTED FOR PICC PLACEMENT MEDICAL NECCESSITY. ATTEMPTED TO TEACH PT BUT NOT RECEPTIVE. SAHRA BASILIC WAS WIDELY PATENT WITH USG, 5FR TL POWER PICC TRIMMED TO 42CM INSERTED TO 0CM. PT TOLERATED WELL. STAT CXR CONFIRMED PLACEMENT AT ATRIAL JUNCTION. PICC RELEASED FOR IMMEDIATE USE TO DARIEN LUNA PER PROTOCOL.
--- NOTE | 2019-10-29 19:15 | NUR ---
Pt lightly sedated with Precedex. Ativan 1 mg given IV one time for insertion of PICC line. Pt confused throughout the day and focused on wanting to go home. Attempts made to reorient patient. Poor intake. Pt reported "reflux" and "burning" in chest during lunch. Dr Samuel notified and ordered Mylanta. Pt drowsy for few hours following Ativan and Precedex was weaned down. Pt awake for late dinner tray. Assisted with meal. Report given to RN assuming care. Fall precautions maintained. Continue to support and work toward nursing/patient goals. Report to oncoming nurse.
[2019-10-30] VITALS (27 sets, daily range): BP systolic 117–171; BP diastolic 76–109
--- NOTE | 2019-10-30 03:41 | NUR ---
ASSUMED PT CARE AROUND 1900. PT IS ORIENTED TO SELF AND KNOWS HE IS IN THE HOSPITAL. DENIES ANY PAIN. C/O HEARTBURN AT BEGINNING OF SHIFT.
--- NOTE | 2019-10-30 03:50 | NUR ---
ASSUMED PT CARE AROUND 1900. PT IS ORIENTED TO HIMSELF AND HE KNOWS HE'S IN THE HOSPITAL. PT C/O SOME ANXIETY AND ASSOCIATED SOA A FEW TIMES DURING THE NIGHT. PRN LORAZEPAM GIVEN WITH IMPROVEMENT IN SYMPTOMS. PT TOLERATED LIQUID DIET WITHOUT N/V. BILATERAL SOFT WRIST RESTRAINTS IN PLACE PT CAN BE IMPULSIVE AT TIMES. REMAINS ON PRECEDEX GTT, WITH GOOD RESULTS IN SYMPTOM CONTROL. FALL PRECAUTIONS IN PLACE. PT STATED HE WANTS TO GO HOME LATER TODAY SO HE CAN SEE HIS KIDS. REASSURANCE PROVIDED ON NEED TO STAY IN THE HOSPITAL UNTIL HE IS BETTER. PT INDICATED UNDERSTANDING. PT SLEEPING AT THIS TIME. RESP EVEN AND UNLABORED. VSS. PROGRESSING SLOWLY TOWARD POC GOALS. WILL CONTINUE TO MONITOR FURTHER.
--- NOTE | 2019-10-30 19:17 | NUR ---
0700 REPORT RECEIVED, SEE ASSESSMENT. SPOKE WITH DR MCQUEEN AND NEURO UPDATED TO POC AND DISCUSSED MEDS AND PLAN. POC FOLLOWED 1900 REPORTED TO PM RN
[2019-10-31] VITALS (7 sets, daily range): BP systolic 136–156; BP diastolic 85–106
--- NOTE | 2019-10-31 03:35 | NUR ---
ASSUMED CARE OF PATIENT AT 1900. ADAMANT THAT HE SHOULD BE ABLE TO LEAVE AMA. EDUCATED ON MEDICATION HE HAD BEEN RECIEVING. AGREEABLE TO STARTING LIBRIUM. PRECEDEX TITRATED DOWN, SEE CHARTING. LITTLE TO NO OUTPUT IN FMS. WILL REMOVE IN AM. RESTRAINTS REMAIN IN PLACE. PROGRESSING SLOWLY TOWARDS POC GOALS.
--- NOTE | 2019-10-31 05:53 | NUR ---
NO STOOL OUTPUT THIS SHIFT, FMS REMOVED AT 0530.
--- NOTE | 2019-10-31 08:40 | NUR ---
chart review. pt still in restraints, eyes opened and awake. per bedside nurse going to assist him with breakfast. diet increased to regular. pt still have rome and iv lines he tries to pull out. will cont following as needed for dc needs.
--- NOTE | 2019-10-31 11:42 | NUR ---
-PATIENT ABLE TO ANSWER ORIENTATION QUESTIONS EXCEPT PLACE. DOES NOT RETAIN EDUCATION THIS MORNING. FREQUENTLY NEEDS EDUCATION ON MEDICATION, DONOVAN, IV USAGE. UNABLE TO VERBALIZE UNDERSTANDING OF NEED FOR PPN & LIPIDS WELL OTHER MEDICATIONS. PATIENT REPORTS ANXIETY, MEDS GIVEN ORDERED. ABLE TO REMOVE RESTRAINTS, PATIENT OFTEN STATES HE CAN REMOVE OWN DONOVAN OR IV'S, STATES HE CAN SIGN AMA PAPERWORK TO LEAVE. EDUCATED ON CONTINUED NEEDS FOR MEDICATION. PATIENT REPORTS HE WANTS TO DISCHARGE, INFORMATION GIVEN TO PROVIDER. PATIENT STATED HE WAS TOLD HE COULD GO HOME BY PROVIDER, CONTACTED PROVIDER, PATIENT UNABLE TO DISCHARGE AT THIS TIME. PT MORE AGITATED WHEN INFORMED HE NEEDS MORE MEDICAL CARE. REMOVING TELEMETRY LEADS AND O2 SATURATION MONITORING. REPLACED LEADS AND O2 SAT, EDUCATED PT ON NEED FOR MONITORING. DISCUSSED PATIENT HEART RATE AND BLOOD PRESSURE WITH PATIENT, PATIENT IS LEAVING MONITORING DEVICES IN PLACE AT THIS TIME. PATIENT STATED "ALL THESES NURSES AND PEOPLE ARE WATCHING ME AND GIVING ME DIRTY LOOKS. THEY NEED TO MIND THEIR OWN BUSINESS. WHY IS EVERYBODY WATCHING ME ALL THE TIME?" ASSURE PATIENT THAT WE ALL NEED TO MONITOR PATIENT FOR THEIR VITAL SIGNS, SAFETY, ANY NEEDS THEY MAY HAVE, ETC. PATIENT HAS NOT VERBALIZED ANY MORE CONCERNS AT THIS TIME. -PATIENT ADVANCED TO HEART HEALTHY DIET. ABLE TO CONSUME APPROX 10% OF MEAL. WAS TAKING LARGE BITES AND BEGAN COUGHING, NEEDED REMINDERS TO TAKE SMALL BITES AND CHEW SLOWLY. PATIENT STATED HE WASN'T ABLE TO EAT ANYMORE AND REPORTED HE WAS FULL. PATIENT HAD BOWEL MOVEMENT WITHIN 30 MINUTES OF EATING. REMAINS ON PPN & LIPIDS AT THIS TIME. -PATIENT MOVING SELF WELL IN BED, SHOWS SOME WEAKNESS. ABLE TO PLACE SELF ON COMMODE AND WIPE SELF.
== END 2019-10-31 17:58 | disposition left against medical advice (07) | DRG 872 ==
LOC: ER 11:57 → ICU 15:21 → EROBS 15:21 → ICU 17:46
PROVIDERS: Hospitalist; Internal Medicine; Nurse Practitioner; Physician Assistant; Psychiatry & Neurology Neurology; Specialist; ADMIT Internal Medicine
PROC: 02HV33Z Insertion of Infusion Device into Superior Vena Cava, Percutaneous Approach (ICD-10-PCS; principal; 2019-10-29)
PROC: B548ZZA Ultrasonography of Superior Vena Cava, Guidance (ICD-10-PCS; principal; 2019-10-29)
DX: A41.01 Sepsis due to Methicillin susceptible Staphylococcus aureus (principal); F10.239 Alcohol dependence with withdrawal, unspecified; F10.231 Alcohol dependence with withdrawal delirium; G93.40 Encephalopathy, unspecified; D61.818 Other pancytopenia; I10 Essential (primary) hypertension; J45.909 Unspecified asthma, uncomplicated; Z79.51 Long term (current) use of inhaled steroids; K29.70 Gastritis, unspecified, without bleeding; E87.6 Hypokalemia; F17.210 Nicotine dependence, cigarettes, uncomplicated; B19.20 Unspecified viral hepatitis C without hepatic coma; Y90.9 Presence of alcohol in blood, level not specified; R21 Rash and other nonspecific skin eruption; F10.229 Alcohol dependence with intoxication, unspecified; I80.8 Phlebitis and thrombophlebitis of other sites; D69.6 Thrombocytopenia, unspecified; R00.0 Tachycardia, unspecified; K52.9 Noninfective gastroenteritis and colitis, unspecified; R16.1 Splenomegaly, not elsewhere classified; K21.9 Gastro-esophageal reflux disease without esophagitis
CPT/HCPCS: 10078; 10196; 27000

== ENCOUNTER 2019-12-11 21:19 | Emergency (ER) | payer OTHER ==
[~2019-12-11] VITALS: Ht 177.8 cm; Wt 81.7 kg
[~2019-12-11 21:19] MED LIST: ALBUTEROL2.5 MG/0.1 INH; PROAIR HFA8.5 GM INH
[2019-12-11 23:01] VITALS: BP 141/96
== END 2019-12-11 23:18 | disposition left against medical advice (07) ==
LOC: ER 21:19
DX: R06.02 Shortness of breath (principal); R04.2 Hemoptysis; R50.9 Fever, unspecified; R07.9 Chest pain, unspecified; F10.10 Alcohol abuse, uncomplicated; Y90.9 Presence of alcohol in blood, level not specified

== ENCOUNTER 2020-02-20 14:18 | Emergency (ER) | payer OTHER ==
[2020-02-20 14:54] LABS: URINE BILIRUBIN NEGATIVE (Negative); URINE BLOOD NEGATIVE (Negative); URINE CLARITY CLEAR; URINE COLOR YELLOW; URINE GLUCOSE-RANDOM* NEGATIVE (Negative); URINE KETONES NEGATIVE (Negative); URINE LEUKOCYTES-REFLEX NEGATIVE (Negative); URINE NITRITE-REFLEX NEGATIVE (Negative); URINE PROTEIN (DIPSTICK) NEGATIVE (Negative); URINE SPECIFIC GRAVITY <= 1.005 (1.005-1.035); URINE UROBILINOGEN 0.2 E.U./dl (0.2-1.0)
[2020-02-20 14:58] LABS: ABSOLUTE NEUTROPHILS 1.9 thou/uL (1.4-8.2); WBC 3.9 thou/uL (4.0-11.0)
[2020-02-20 15:00] LABS: BASOPHILS 0.7 % (0.0-2.0); EOSINOPHILS 4.4 % (0.0-3.0); HEMATOCRIT 39.4 % (42.0-52.0); HEMOGLOBIN 13.4 gm/dL (14.0-18.0); LYMPHOCYTES 36.5 % (24.0-44.0); MCH 31.7 pg (26.0-34.0); MCHC 33.9 g/dL (28.0-37.0); MCV 93.5 fL (80.0-100.0); MONOCYTES 9.5 % (1.0-8.0); PLATELET COUNT 107 thou/uL (150-400); POLYS 48.9 % (36.0-66.0); RBC 4.21 mil/uL (4.50-6.00); RDW 19.2 % (10.5-14.5)
[2020-02-20 15:01] LABS: AMP/METHAMP Negative (Negative); BARBITURATES Negative (Negative); BENZODIAZEPINES POSITIVE (Negative); COCAINE Negative (Negative); METHADONE Negative (Negative); OPIATES Negative (Negative); PCP Negative (Negative)
[2020-02-20 15:16] LABS: CALCIUM 8.5 mg/dL (8.5-10.1); POTASSIUM 3.1 mmol/L (3.5-5.1)
[2020-02-20 15:21] LABS: ALBUMIN 3.5 g/dL (3.4-5.0); TOTAL BILIRUBIN 1.5 mg/dL (0.2-1.0)
[2020-02-20 15:45] LABS: ANISOCYTOSIS 1+
[2020-02-20] MEDS ORDERED: ATIVAN1 M1 PO (16:46)
[2020-02-20] MEDS ORDERED: POTASSIUM20 PO (16:53)
[2020-02-20 16:59] VITALS: BP 132/81
--- NOTE | 2020-02-21 08:42 | EKG ---
[facility] [place] [address] ELECTROCARDIOGRAM REPORT Name: MARCK DE PAZ Room #: DEP [facility]..#: [id number] Admission: 02/20/20 Attend Phys: Discharge: 02/20/20 Date of : 89 Report #: [id number] THIS REPORT FOR: cc: JOSE - Zaida family physician/PCP JOSE - Zaida family physician/PCP Reynaldo Lake MD [facility] THIS REPORT FOR: //name// 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 : 1990 Requested By: Jose Chambers Order Number: [id number] MD: Reynaldo Lake Measurements Intervals [place] Rate: 102 P: 77 FL: 130 QRS: 61 QRSD: 96 T: 40 QT: 334 QTc: 436 Interpretive Statements Sinus tachycardia Poor R wave progression Baseline wander in lead(s) V3 Compared to ECG 10/19/2019 16:56:10 No significant change was found Electronically Signed On 02-21-2020 8:41:53 CDT by Reynaldo Lake [email or web address] <ELECTRONICALLY SIGNED> By: Reynaldo Lake MD, [facility] 02/21/20 [id number] 1518 Reynaldo Lake MD, [facility] /EPI
== END 2020-02-20 16:59 | disposition home or self-care (01) ==
LOC: ER 14:18
PROVIDERS: Physician Assistant
DX: F10.920 Alcohol use, unspecified with intoxication, uncomplicated (principal); K92.0 Hematemesis; R51 Headache; R23.2 Flushing; R20.0 Anesthesia of skin; R25.1 Tremor, unspecified; R10.84 Generalized abdominal pain; R06.00 Dyspnea, unspecified; J45.909 Unspecified asthma, uncomplicated; I10 Essential (primary) hypertension; Z79.899 Other long term (current) drug therapy; Y90.8 Blood alcohol level of 240 mg/100 ml or more